=== PATIENT | female | born 1960 | race Caucasian/White ===

== ENCOUNTER 2017-02-25 12:23 | Emergency (ER) | payer SELFPAY ==
[2017-02-25 12:43] VITALS: BP 138/91
--- NOTE | 2017-02-25 13:06 | UC ---
Amadeo Hairston Angela, scribed for Harris Wang MD on 02/25/17 at 1257 . Back Pain HPI - HPI Summary HPI Summary: This pt is a 57 y/o female presenting to [facility] c/o atraumatic worsening back pain since 3 days ago. 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 The next day she states she woke up with a sore back. Yesterday she notes her back pain worsened. Her pain is non-radiating and is aggravated by movement of right leg and arm. Pt states using muscle relaxant in the evening with mild relief and Aleve this morning. She denies numbness, tingling or weakness in LE, arm pain, leg pain, urinary or bowel incontinence. Pt notes having chronic neck pain from arthritis, for which she takes Advil once day every day. No PMHx of back problems. - History of Current Complaint Chief Complaint: UCBackPain Stated Complaint: BACK INJURY Time Seen by Provider: 02/25/17 12:42 Hx Obtained From: Patient Onset/Duration: Gradual Onset Back Pain: Is Discrete @ - back pain Aggravating: Movement Alleviating: Nothing Associated Signs And Symptoms: Negative: Weakness, Numbness, Tingling, Abdominal Pain, Bladder Incontinence, Bowel Incontinence - Allergies/Home Medications Allergies/Adverse Reactions: Allergies Allergy/AdvReac Type Severity Reaction Status Date / Time Prednisone Allergy Unknown Verified 09/02/15 14:00 Reaction Details Home Medications: Home Medications B-Complex Vitamins [Vitamin B Complex] 1 tab PO 02/25/17 [History] Fiber [Advanced Fiber Complex/AC] 1 cap PO 02/25/17 [History] PMH/Surg Hx/FS Hx/Imm Hx - Additional Past Medical History Additional PMH: PMHx: chronic neck pain, arthritis Other Endocrine History: DENIES: Diabetes Other Cardiovascular History: DENIES: HTN - Surgical History Surgical History: Yes Surgery Procedure, Year, and Place: SINUS POLYPS REMOVED and another sinus surgery,LAP CAITLYN, uterine fibroids, bilat carpal tunnel - Social History Alcohol Use: Rare Substance Use Type: Marijuana Substance Use Comment - Amount & Last Used: weekly Smoking Status (MU): Heavy Every Day Tobacco Smoker Type: Cigarettes - Immunization History Most Recent Influenza Vaccination: 2016 Review of Systems Constitutional: Negative Skin: Negative Eyes: Negative ENT: Negative Respiratory: Negative Cardiovascular: Negative Gastrointestinal: Negative Genitourinary: Negative - bowel or urinary incontinence Neurovascular: Negative Musculoskeletal: Other: - back pain Neurological: Negative - numbness, weakness, paresthesia All Other Systems Reviewed And Are Negative: Yes Physical Exam Triage Information Reviewed: Yes Vital Signs: Initial Vital Signs Temp 98.8 F 02/25/17 12:37 Pulse 90 02/25/17 12:37 Resp 18 02/25/17 12:37 BP 138/91 02/25/17 12:37 Pulse Ox 99 02/25/17 12:37 Vital Signs Reviewed: Yes - Additional Comments General: well-appearing, no pain distress Skin: warm, color reflects adequate perfusion, dry Head: normal Eyes: EOMI, SUYAPA ENT: normal Neck: supple, nontender Respiratory: CTA, breath sounds present Cardiovascular: RRR Musculoskeletal: Tender in lower back across the back, worse on the right side at the right sacroiliac joint. Good ROM. There is pain with right hip flexion. Neurological: normal, sensory/motor intact, A&O x3. Neurologically intact. Psychological: affect/mood appropriate Back Pain Course/Dx - Course Course Of Treatment: This pt is a 57 y/o female presenting to [facility] c/o atraumatic worsening back pain since 3 days ago. 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 The next day she states she woke up with a sore back. Yesterday she notes her back pain worsened. Her pain is non-radiating and is aggravated by movement of right leg and arm. Pt states using muscle relaxant in the evening with mild relief and Aleve this morning. She denies numbness, tingling or weakness in LE, arm pain, leg pain, urinary or bowel incontinence. Pt notes having chronic neck pain from arthritis, for which she takes Advil once day every day. No PMHx of back problems. Elevated BP noted and advised to follow up with PCP. Medications reviewed. - Differential Dx/Diagnosis Provider Diagnoses: LOW BACK STRAIN Discharge - Discharge Plan Condition: Stable Disposition: HOME Prescriptions: Cyclobenzaprine TAB* [Flexeril 10 MG TAB*] 10 mg PO BID PRN #10 tab PRN Reason: Pain Naproxen Sodium [Naproxen Sodium ER 500 MG TAB] 500 mg PO BID PRN #20 tab PRN Reason: Pain Patient Education Materials: Low Back Strain (ED), Lower Back Exercises (ED) Forms: *Work Release Referrals: Jossie Ordonez MD [Primary Care Provider] - Additional Instructions: FOLLOW UP WITH YOUR DOCTOR. GET RECHECKED FOR ANY WORSENING OF YOUR CONDITION; WEAKNESS, NUMBNESS, PAIN, DIFFICULTY CONTROLLING BOWEL OR BLADDER OR QUESTIONS OR CONCERNS. The documentation as recorded by the Amadeo davis Angela accurately reflects the service I personally performed and the decisions made by me, Harris Wang MD.
== END 2017-02-25 13:08 | disposition home or self-care (01) ==
LOC: UCEAST 12:23
DX: S39.012A Strain of muscle, fascia and tendon of lower back, initial encounter (principal); X50.3XXA Overexertion from repetitive movements, initial encounter; Y93.89 Activity, other specified; Y92.214 College as the place of occurrence of the external cause; Y99.0 Civilian activity done for income or pay; Z88.8 Allergy status to other drugs, medicaments and biological substances; F12.90 Cannabis use, unspecified, uncomplicated; F17.210 Nicotine dependence, cigarettes, uncomplicated
CPT/HCPCS: 99212; G0463

== ENCOUNTER 2017-08-17 12:43 | Emergency (ER) | payer BC, OTHER ==
[2017-08-17] MEDS ORDERED: NS 0.9% 1000 ML* 2,000 ML IV ONE (16:08)
[2017-08-17] MEDS ORDERED: Oseltamivir CAP* 75 MG CAP ONE (16:21)
[2017-08-17] MEDS ORDERED: Oseltamivir CAP* 75 MG CAP PO ONE (16:28)
[2017-08-17 16:35] VITALS: BP 136/91
--- NOTE | 2017-08-19 22:47 | ED ---
Elgin Hairston Jennifer, scribed for Roderick Lowery MD on 08/17/17 at 1616 . Dizziness - HPI Summary HPI Summary: The patient is a 57 year old female who presents with dizziness for the last few days. She describes that at the end of the work day, she felt like the floor was moving and moving her head made everything move and shake. The patient adds that she had pain yesterday near her left eye and left face and experienced blurry vision in her left eye, but denies blurry vision in the ED today. She additionally complains of a hard headache for the past few days, fever, sweats, chills, cough, sore throat, nose congestion, difficulty breathing , and lots of body aches. The patient denies chest pain. She has a history of bone spurts and arthritis in her neck. - History Of Current Complaint Chief Complaint: EDDizziness Stated Complaint: TREMBLING Time Seen by Provider: 08/17/17 16:08 Hx Obtained From: Patient Onset/Duration: Still Present Timing: Constant Severity Initially: Mild Severity Currently: Mild Character: Room Spinning, Dizzy Aggravating Factor(s): Nothing Alleviating Factor(s): Nothing Associated Signs And Symptoms: Positive: Other: - pain in left eye and left face , blurry vision in left eye, headache, fever, sweats, chills, cough, sore throat , nose congestion, difficulty breathing, body aches. NEGATIVE: chest pain - Allergies/Home Medications Allergies/Adverse Reactions: Allergies Allergy/AdvReac Type Severity Reaction Status Date / Time prednisone Allergy Unknown Verified 08/17/17 13:42 Reaction Details PMH/Surg Hx/FS Hx/Imm Hx Endocrine/Hematology History: Denies: Hx Diabetes Cardiovascular History: Denies: Hx Hypertension, Hx Pacemaker/ICD Respiratory History: Denies: Hx Asthma History: Denies: Hx Dialysis, Hx Renal Disease Musculoskeletal History: Reports: Hx Arthritis - Neck Sensory History: Denies: Hx Hearing Aid Psychiatric History: Denies: Hx Panic Disorder - Surgical History Surgery Procedure, Year, and Place: SINUS POLYPS REMOVED and another sinus surgery,LAP CAITLYN, uterine fibroids, bilat carpal tunnel Infectious Disease History: No Infectious Disease History: Denies: Traveled Outside the [place] in Last 30 Days - Family History Known Family History: Negative: Renal Disease - Social History Alcohol Use: Rare Substance Use Type: Reports: Marijuana Substance Use Comment - Amount & Last Used: weekly Smoking Status (MU): Heavy Every Day Tobacco Smoker Type: Cigarettes Review of Systems Positive: Fever, Chills, Skin Diaphoresis, Other - Body aches Positive: Blurred Vision - Left eye, Other - Pain in left eye and face. Negative: Erythema ENT: Other - Nose congestion Positive: Sore Throat Negative: Chest Pain Positive: Shortness Of Breath - Difficulty breathing, Cough Negative: Abdominal Pain, Vomiting, Nausea Negative: dysuria, hematuria Negative: Myalgia, Edema Negative: Rash Neurological: Other - Dizziness Positive: Headache All Other Systems Reviewed And Are Negative: Yes Physical Exam - Summary Physical Exam Summary: Constitutional: Well-developed, Well nourished, Alert. (-) Distressed Skin: Warm, Dry HENT: Normocephalic; Atraumatic Eyes: Conjunctiva normal Neck: Musculoskeletal ROM normal neck. (-) JVD, (-) Stridor, (-) Tracheal deviation Cardio: Rhythm regular, rate normal, Heart sounds normal; Intact distal pulses; The pedal pulses are 2+ and symmetric. Radial pulses are 2+ and symmetric. (-) Murmur Pulmonary/Chest wall: Effort normal. (-) Respiratory distress, (-) Wheezes, (-) Rales Abd: Soft, (-) Tenderness, (-) Distension, (-) Guarding, (-) Rebound Musculoskeletal: (-) Edema Lymph: (-) Cervical adenopathy Neuro: Alert, Oriented x3 Psych: Mood and affect Normal Triage Information Reviewed: Yes Vital Signs On Initial Exam: Initial Vitals Temp Pulse Resp BP Pulse Ox 101.0 F 97 18 152/79 97 08/17/17 13:01 08/17/17 13:01 08/17/17 13:01 08/17/17 13:01 08/17/17 13:01 Vital Signs Reviewed: Yes Diagnostics - Vital Signs Vital Signs Temp Pulse Resp BP Pulse Ox 08/17/17 15:29 100.7 F 87 20 141/78 99 08/17/17 13:01 101.0 F 97 18 152/79 97 - Laboratory Lab Results: Lab Results 08/17/17 Range/Units 15:05 Influenza A (Rapid) Negative (Negative) Influenza B (Rapid) Positive H (Negative) Lab Statement: Any lab studies that have been ordered have been reviewed, and results considered in the medical decision making process. Dizzy Course/Dx - Course Assessment/Plan: The patient is a 57 year old female who presents with dizziness for the last few days. She additionally complains of blurry vision in her left eye, a hard headache for the past few days, fever, sweats, chills, cough, sore throat, nose congestion, difficulty breathing, and lots of body aches. In the ED course the patient was given Tamiflu. Influenza A was negative , but Influenza B was positive. The patient refused EKG, labs, and IV fluids. She is diagnosed with influenza and vertigo. The patient left AMA. - Diagnoses Provider Diagnoses: Influenza, Vertigo Discharge - Discharge Plan Condition: Fair Disposition: AGAINST MEDICAL ADVICE Prescriptions: Oseltamivir CAP* [Tamiflu CAP*] 75 mg PO BID #20 cap Referrals: Jossie Ordonez MD [Primary Care Provider] - The documentation as recorded by the Elgin davis Jennifer accurately reflects the service I personally performed and the decisions made by , Roderick Lowery MD.
== END 2017-08-17 16:53 | disposition left against medical advice (07) ==
LOC: ED 12:43
DX: J10.1 Influenza due to other identified influenza virus with other respiratory manifestations (principal); R42 Dizziness and giddiness; F17.210 Nicotine dependence, cigarettes, uncomplicated; Z88.8 Allergy status to other drugs, medicaments and biological substances
CPT/HCPCS: 87502; 99282; A9270-GY

== ENCOUNTER 2017-08-30 06:08 | Emergency (ER) | payer BC ==
[2017-08-30 10:40] LABS: Hematocrit 36 % (35-47); Hemoglobin 12.4 g/dl (12.0-16.0); Mean Corpuscular HGB Conc 34 g/dl (31-36); Mean Corpuscular Hemoglobin 33 pg (27-31); Mean Corpuscular Volume 98 fL (80-97); Mean Platelet Volume 9 um3 (7.4-10.4); Platelet Count 268 10^3/ul (150-450); Red Blood Count 3.73 10^6/ul (4.0-5.4); Red Cell Distribution Width 14 % (10.5-15); White Blood Count 6.3 10^3/ul (3.5-10.8)
[2017-08-30 10:42] LABS: Urine Appearance Clear; Urine Blood Negative (Negative); Urine Color Straw; Urine Ketones Negative (Negative); Urine Protein Negative (Negative); Urine Specific Gravity 1.005 (1.010-1.030); Urine Urobilinogen Negative (Negative)
[2017-08-30 10:50] LABS: INR 0.94 (0.77-1.02)
[2017-08-30 11:09] LABS: EGFR Non-African American 101.1 (>60)
[2017-08-30 12:40] LABS: ABS Basophils 0.1 10^3/ul (0-0.2); ABS Eosinophils 0.1 10^3/ul (0-0.6); ABS Lymphocytes 2.2 10^3/ul (1.0-4.8); ABS Monocytes 0.4 10^3/ul (0-0.8); ABS Neutrophils 3.6 10^3/ul (1.5-7.7); ABS Nucleated RBC 0 10^3/ul; Eosinophil % 1.1 % (0-6); Lymphocyte % 34.4 % (25-47); Nucleated Red Blood Cells % 0
[2017-08-30] MEDS ORDERED: Iohexol 350* (CONTRAST) 500 ML MDV IV ONE (13:17)
--- NOTE | 2017-08-30 14:07 | RAD ---
HISTORY: Visual changes, headache, blurred vision COMPARISONS: February 01, 2012 TECHNIQUE: Multiple contiguous axial CT scans were obtained of the head, before and after, and of the neck after the administration of nonionic intravenous contrast timed to the systemic arterial phase of contrast enhancement. Coronal and sagittal multiplanar reformations are submitted for review. Multiple 3-D maximum intensity projection reconstructions are also submitted for review. FINDINGS: CTA NECK: AORTIC ARCH: There is a normal three-vessel branching pattern of the aortic arch. There is no ostial or proximal stenosis of the cephalic great vessels. RIGHT VERTEBRAL ARTERY: The right vertebral artery is patent along its course, without stenosis. LEFT VERTEBRAL ARTERY: The left vertebral artery is patent along its course, without stenosis. DOMINANCE: The vertebral arteries are codominant. RIGHT COMMON CAROTID ARTERY: The right common carotid artery is patent. The right carotid bifurcation occurs at C4-C5 RIGHT INTERNAL CAROTID ARTERY: There is no right internal carotid artery stenosis by NASCET criteria. RIGHT EXTERNAL CAROTID ARTERY: The right external carotid artery is unremarkable. LEFT COMMON CAROTID ARTERY: The left common carotid artery is patent. The left carotid bifurcation occurs at C3-C4 LEFT INTERNAL CAROTID ARTERY: There is no left internal carotid artery stenosis by NASCET criteria. LEFT EXTERNAL CAROTID ARTERY: The left external carotid artery is unremarkable. VENOUS CIRCULATION: The venous system is unremarkable. SALIVARY GLANDS: The parotid glands, submandibular glands, sublingual glands are normal. NASAL CAVITY/NASOPHARYNX: The nasal cavity and nasopharynx are normal. ORAL CAVITY/OROPHARYNX: The oral cavity and oropharynx are unremarkable. LARYNGEAL APPARATUS/HYPOPHARYNX: The laryngeal apparatus and hypopharynx are normal. UPPER AIRWAY/UPPER ESOPHAGUS: The visualized upper airway and esophagus are normal. LUNG APICES: The lung apices are clear. THYROID GLAND: The thyroid gland is normal. LYMPH NODES: There is no lymphadenopathy by size criteria. BONES AND SOFT TISSUES: Mild degenerative changes are noted CTA HEAD: INTRACRANIAL CIRCULATION: There is no aneurysm, vascular malformation, occlusion, or stenosis of the visualized intracranial circulation. The anterior communicating artery complex is clear. Bilateral posterior communicating arteries are identified. VENOUS CIRCULATION: The venous system is unremarkable. PERFUSION: There is no obvious parenchymal perfusion deficit. HEMORRHAGE/INFARCT: There is no hemorrhage or acute infarct. MASSES/SHIFT: There is no mass or shift. EXTRA-AXIAL SPACES: There are no extra-axial fluid collections. SULCI AND VENTRICLES: The sulci and ventricles are normal in size and position for the patient's stated age. CEREBRUM: There are no focal parenchymal abnormalities. BRAINSTEM: There are no focal parenchymal abnormalities. CEREBELLUM: There are no focal parenchymal abnormalities. PARANASAL SINUSES: There is post surgical change to the paranasal sinuses. ORBITS: The orbits are unremarkable. BONES AND SOFT TISSUE: No bone or soft tissue abnormalities are noted. OTHER: There is no abnormal enhancement. IMPRESSION: 1. NO INTERNAL CAROTID ARTERY STENOSIS BY NASCET CRITERIA. 2. NO ANEURYSM, VASCULAR MALFORMATION, OCCLUSION, OR STENOSIS OF THE VISUALIZED INTRACRANIAL CIRCULATION. CPT II Codes: 3100F
[2017-08-30 15:13] VITALS: BP 117/79
--- NOTE | 2017-08-31 00:28 | ED ---
Michael Hairston Stephanie, scribed for Bessie Gentile MD on 08/30/17 at 1020 . Headache - HPI Summary HPI Summary: The pt is a 57 y/o F BIBA to the ED with c/o intermittent HORTA that began yesterday at 02:00. The HORTA lasts 15 minutes at a time. Symptoms include blurry vision. The HORTA is primarily located on the temples bilaterally but also spreads to the frontal an occipital regions. The pt states that she attempted to use a Netti pot to help her HORTA but the HORTA was not improved. The pt mentions she had a sharp pain on the L side of her head 2 weeks ago accompanied by blurred vision. The pt was a pt at [facility] yesterday and received an EKG and CT head but has not received the results. - History Of Current Complaint Chief Complaint: EDHeadache Stated Complaint: HEADACHE, BLURRY VISION Time Seen by Provider: 08/30/17 09:28 Hx Obtained From: Patient Onset/Duration: Started days ago - 1, Still Present Currently Pain Is: Current Pain Scale(0-10)= - 0 Timing: Intermittent, Lasting: Location of Headache: Diffuse Aggravating Factor: Nothing Allevating Factors: Nothing Associated Signs And Symptoms: Visual Changes - Allergies/Home Medications Allergies/Adverse Reactions: Allergies Allergy/AdvReac Type Severity Reaction Status Date / Time prednisone Allergy Unknown Verified 08/17/17 13:42 Reaction Details Home Medications: Home Medications Biotin 1 mg PO DAILY 08/30/17 [History Confirmed 08/30/17] DOXYcycline CAP(*) [DOXYcycline 100MG CAP(*)] 100 mg PO BID 08/30/17 [History Confirmed 08/30/17] Guaifen/Phenyleph/Acetaminophn [Mucinex Sinus-Max Severe] 1 tab PO BID 08/30/17 [History Confirmed 08/30/17] Psyllium EARL* [Metamucil EARL*] 1 pkt PO DAILY 08/30/17 [History Confirmed ] Vitamin B Complex CAP* [B Complex CAP*] 1 cap PO DAILY 08/30/17 [History Confirmed 08/30/17] PMH/Surg Hx/FS Hx/Imm Hx Endocrine/Hematology History: Denies: Hx Diabetes Cardiovascular History: Denies: Hx Hypertension, Hx Pacemaker/ICD Respiratory History: Denies: Hx Asthma History: Denies: Hx Dialysis, Hx Renal Disease Musculoskeletal History: Reports: Hx Arthritis - Neck Sensory History: Denies: Hx Hearing Aid Psychiatric History: Denies: Hx Panic Disorder - Surgical History Surgery Procedure, Year, and Place: SINUS POLYPS REMOVED and another sinus surgery,LAP CAITLYN, uterine fibroids, bilat carpal tunnel Infectious Disease History: No Infectious Disease History: Denies: Traveled Outside the [place] in Last 30 Days - Family History Known Family History: Negative: Renal Disease - Social History Occupation: Employed Full-time Lives: Alone Alcohol Use: Occasionally Substance Use Type: Reports: Marijuana Substance Use Comment - Amount & Last Used: 08/29/17 Smoking Status (MU): Heavy Every Day Tobacco Smoker Type: Cigarettes Review of Systems Positive: Blurred Vision Positive: Headache All Other Systems Reviewed And Are Negative: Yes Physical Exam - Summary Physical Exam Summary: Appearance: Ill-appearing, moderate pain distress, Well-nourished Skin: Warm, color reflects adequate perfusion Head: Normal Head/Face inspection Eyes: Conjunctiva clear ENT: Normal inspection, TM normal, pharynx normal Neck: Supple, no nodes, no JVD. Respiratory: Lungs clear, Normal breath sounds, no respiratory distress Cardio: RRR, No murmur, pulses normal, brisk capillary refill Abdomen: soft, nontender Bowel sounds: present Musculoskeletal: Strength Intact/ ROM intact. No calf tenderness. No edema. Neuro: Alert, muscle tone normal, facial symmetry, speech normal, sensory/motor intact Psychological: Normal Triage Information Reviewed: Yes Vital Signs On Initial Exam: Initial Vitals Temp Pulse Resp BP Pulse Ox 98.1 F 55 18 146/94 98 08/30/17 06:19 08/30/17 06:19 08/30/17 06:19 08/30/17 06:19 08/30/17 06:19 Vital Signs Reviewed: Yes Diagnostics - Vital Signs Vital Signs Temp Pulse Resp BP Pulse Ox 08/30/17 06:19 98.1 F 55 18 146/94 98 - Laboratory Result Diagrams: 08/30/17 10:10 08/30/17 10:10 Lab Statement: Any lab studies that have been ordered have been reviewed, and results considered in the medical decision making process. - CT CTA Head/Neck CT Interpretation: Positive (See Comments) CT Interpretation Completed By: Radiologist - 1. NO INTERNAL CAROTID ARTERY STENOSIS BY NASCET CRITERIA. 2. NO ANEURYSM, VASCULAR MALFORMATION, OCCLUSION, OR STENOSIS OF THE VISUALIZED INTRACRANIAL CIRCULATION. Headache Course/Dx - Course Course Of Treatment: ED physician consulted with Dr. Khanh Devine at 13:05 and suggested to get CTA head and neck. Dr. Devine is getting MRI results from yesterday. - Diagnoses Provider Diagnoses: Acute headache Discharge - Discharge Plan Condition: Stable Disposition: HOME Patient Education Materials: Acute Headache (ED) Referrals: Khanh Devine DO [Doctor of Osteopathy] - As Soon As Possible Additional Instructions: We spoke with Dr. Devine today to help us evaluate your headache. We gave you a copy of the CTA of your head and neck that we ordered. Please follow up with him him as soon as possible. Return to the ER if you have any new or worsening symptoms. The documentation as recorded by the Michael davis Stephanie accurately reflects the service I personally performed and the decisions made by me, Bessie Gentile MD.
== END 2017-08-30 15:26 | disposition home or self-care (01) ==
LOC: ED 06:08
DX: R51 Headache (principal)
CPT/HCPCS: 36415; 70496; 70498; 80053; 81003; 83735; 85025; 85610; 85652; 86140; 99283; Q9967

== ENCOUNTER → 2018-03-26 07:01 | Emergency (ER) | payer BC ==
[~2018-03-26 07:01] MED LIST: Dexamethasone TAB* 4 MG PO ONE; Ibuprofen TAB* 600 MG PO ONE
--- NOTE | 2018-03-26 07:46 | ED ---
Hypertension - HPI Summary HPI Summary: A 58 y/o F GONSALO presents to ED with c/o high blood pressure onset this AM US[employer]. Pt has a known L ear infection. She was seen at [facility] last night. They gave her Augmentin 10 days. At that visit, they told her, her BP was high. Today at work, she did not feel well, and EMS came to evaluate her. They took orthostatics, BP multiple times and EMS recommended that she come into the ED for further evaluation. Associated: temporal head "pressure"; ear pressure, sinus congestion; dizziness. Denies: rhinorrhea, SOB, dyspnea. PMHx: chronic sinus infections, sinus surgeries. She has not seen her ENT in [place] recently. Pt has been using Mucinex and a cecile pot. Pt was last seen in [facility] on 08/30/17. She has been cutting back on her smoking this past month. - History of Current Complaint Chief Complaint: EDHypertension Stated Complaint: HIGH BP Time Seen by Provider: 03/26/18 07:34 Hx Obtained From: Patient, Other: - friend Onset/Duration: Started Hours Ago, Still Present Timing: Constant Associated Signs & Symptoms: Dizziness, Other: - pos: temporal head "pressure"; ear pressure, sinus congestion - Allergies/Home Medications Allergies/Adverse Reactions: Allergies Allergy/AdvReac Type Severity Reaction Status Date / Time prednisone Allergy Unknown Verified 03/26/18 07:03 Reaction Details Home Medications: Home Medications Amoxicillin PO (*) [Amoxicillin 875 MG (*)] 875 mg PO BID 03/26/18 [History Confirmed 03/26/18] PMH/Surg Hx/FS Hx/Imm Hx Previously Healthy: Yes Endocrine/Hematology History: Denies: Hx Diabetes Cardiovascular History: Denies: Hx Hypertension, Hx Pacemaker/ICD Respiratory History: Denies: Hx Asthma GI History: Reports: Hx Gall Bladder Disease History: Denies: Hx Dialysis, Hx Renal Disease Musculoskeletal History: Reports: Hx Arthritis - Neck Sensory History: Denies: Hx Hearing Aid Psychiatric History: Denies: Hx Panic Disorder - Surgical History Surgery Procedure, Year, and Place: SINUS POLYPS REMOVED and another sinus surgery,LAP CAITLYN, uterine fibroids, bilat carpal tunnel Infectious Disease History: No Infectious Disease History: Denies: Traveled Outside the [place] in Last 30 Days - Family History Known Family History: Negative: Renal Disease - Social History Occupation: Employed Full-time Lives: Alone Alcohol Use: Occasionally Substance Use Type: Reports: Marijuana Substance Use Comment - Amount & Last Used: 08/29/17 Smoking Status (MU): Heavy Every Day Tobacco Smoker Type: Cigarettes Review of Systems Negative: Fever, Chills Negative: Erythema Positive: Ear Ache - ear "pressure", Other - pos: sinus congestion. Negative: Sore Throat, Nasal Discharge Negative: Chest Pain Negative: Shortness Of Breath, Cough, Other - neg: dyspnea Negative: Abdominal Pain, Vomiting, Nausea Negative: dysuria, hematuria Negative: Myalgia, Edema Negative: Rash Neurological: Other - pos: dizziness Positive: Headache - temporal head "pressure" All Other Systems Reviewed And Are Negative: Yes Physical Exam - Summary Physical Exam Summary: Constitutional: Well-developed, Well-nourished, Alert. (-) Distressed Skin: Warm, Dry HENT: Normocephalic; Atraumatic. Left TM is bulging. Eyes: Conjunctiva normal Neck: Musculoskeletal ROM normal neck. (-) JVD, (-) Stridor, (-) Tracheal deviation Cardio: Rhythm regular, rate normal, Heart sounds normal; Intact distal pulses; The pedal pulses are 2+ and symmetric. Radial pulses are 2+ and symmetric. (-) Murmur Pulmonary/Chest wall: Effort normal. (-) Respiratory distress, (-) Wheezes, (-) Rales Abd: Soft, (-) epigastric tenderness, (-) Distension, (-) Guarding, (-) Rebound Musculoskeletal: (-) Edema Lymph: (-) Cervical adenopathy Neuro: Alert, Oriented x3 Psych: Mood and affect Normal Triage Information Reviewed: Yes Vital Signs On Initial Exam: Initial Vitals Temp Pulse Resp BP Pulse Ox 97.5 F 62 14 137/83 100 03/26/18 07:03 03/26/18 07:03 03/26/18 07:03 03/26/18 07:03 03/26/18 07:03 Vital Signs Reviewed: Yes Diagnostics - Vital Signs Vital Signs Temp Pulse Resp BP Pulse Ox 03/26/18 07:03 97.5 F 62 14 137/83 100 - Laboratory Lab Statement: Any lab studies that have been ordered have been reviewed, and results considered in the medical decision making process. Hypertension Course/Dx - Course Course Of Treatment: Pt is a 58 y/o F BIBA with high blood pressure, sinus congestion, head/ear pain, dizziness, and known L ear infection, given Augmentin 10 days. Her BP was high at [facility] last night. EMS took orthostatics , BP multiple times this AM while pt was at work. Pert PMHx: chronic sinus infections, sinus surgeries. Pt given Decadron and Motrin in ED. I discussed with pt the possibility that medications may increase her BP. Will d/c pt home to f/u with her PCP and ENT physician. All sx of vertigo are related to sinus pressure, she has active sinus effusion and sinusitis. Active care. - Diagnoses Provider Diagnoses: Otitis media, left, Acute sinusitis, Vertigo Discharge - Sign-Out/Discharge Documenting (check all that apply): Patient Departure - DC - Discharge Plan Condition: Stable Disposition: HOME Patient Education Materials: Pseudoephedrine (By mouth), Meclizine (By mouth) Forms: *Work Release Referrals: Khanh Devine, [Primary Care Provider] - 2 Days Additional Instructions: Return to the emergency department for changing or worsening symptoms. Schedule an appointment with your ENT physician in [place]. - Attestation Statements Document Initiated by Scribe: Yes Documenting Scribe: Cande Smith Provider For Whom Scribe is Documenting (Include Credential): Dr. Roderick Lowery MD Scribe Attestation: Yovanny, Cande Smith, scribed for Dr. Roderick Lowery MD on 03/26/18 at 1739.
[2018-03-26 08:47] VITALS: BP 140/95
== END | disposition home or self-care (01) ==
LOC: ED 07:01
DX: H66.92 Otitis media, unspecified, left ear (principal); J01.90 Acute sinusitis, unspecified; R42 Dizziness and giddiness; I10 Essential (primary) hypertension; F17.210 Nicotine dependence, cigarettes, uncomplicated; Z88.8 Allergy status to other drugs, medicaments and biological substances
CPT/HCPCS: 99282; A9270-GY; J8540